=== PATIENT | male | born 1955 | race Caucasian/White ===

== ENCOUNTER 2022-01-05 01:30 | Emergency (ER) | payer MEDICARE, OTHER ==
[~2022-01-05] VITALS: Ht 180.3 cm; Wt 85.4 kg
[~2022-01-05 01:30] MED LIST: QUET100T PO
[2022-01-05 01:39] VITALS: BP 129/74
[2022-01-05] MEDS ORDERED: IBUPROFEN 600 MG TABLET PO ONE (01:45)
== END 2022-01-05 04:15 | disposition home or self-care (01) ==
LOC: EMS 01:32
DX: G89.29 Other chronic pain (principal); M54.9 Dorsalgia, unspecified; F41.9 Anxiety disorder, unspecified; F20.9 Schizophrenia, unspecified; F17.210 Nicotine dependence, cigarettes, uncomplicated; Z89.431 Acquired absence of right foot; Z99.3 Dependence on wheelchair; Z90.89 Acquired absence of other organs
CPT/HCPCS: 99283

== ENCOUNTER 2022-01-08 11:54 | Inpatient (IN) | payer MEDICARE, MEDICAID ==
[~2022-01-08] VITALS: Ht 175.3 cm; Wt 72.6 kg
[2022-01-08 12:58] LABS: BASOPHILS % (AUTO) 0.8 % (0.0-2.0); EOSINOPHILS % (AUTO) 4.2 % (1.0-6.0); HEMATOCRIT 30.5 % (41-53); HEMOGLOBIN 10.3 g/dL (13.5-17.5); LYMPHOCYTES # (AUTO) 1.2 K/uL (1.0-4.8); LYMPHOCYTES % (AUTO) 25.5 % (22.0-44.0); MEAN CORPUSCULAR HEMOGLOBIN 28.9 pg (26.0-34.0); MEAN CORPUSCULAR HGB CONC 33.8 G/dL (31.0-37.0); MEAN CORPUSCULAR VOLUME 86 fL (80-100); MONOCYTES # (AUTO) 0.4 K/uL (0.1-1.0); MONOCYTES % (AUTO) 9.2 % (2.0-9.0); NEUTROPHILS # (AUTO) 2.8 K/uL (1.8-7.7); NEUTROPHILS % (AUTO) 60.3 % (40.0-70.0); PLATELET COUNT (AUTO) 118 K/uL (150-450); RED BLOOD CELL COUNT(AUTO) 3.56 MIL/uL (4.50-5.90); RED CELL DISTRIBUTION WIDTH 16.4 % (11.5-14.5)
[2022-01-08 13:14] LABS: ANION GAP 10 mmol/L (8-16); CALCIUM, TOTAL 8.4 mg/dL (8.8-10.5); CARBON DIOXIDE 25 mmol/L (22-29); CHLORIDE 106 mmol/L (98-107); CREATININE 0.71 mg/dL (0.60-1.30); GLOMERULAR FILTR. RATE CALC > 60 mL/min (>60); GLUCOSE,RANDOM 91 mg/dL (70-110); POTASSIUM 3.6 mmol/L (3.5-5.1); SODIUM SERUM 141 mmol/L (136-145); UREA NITROGEN, BLOOD 10 mg/dL (7-18)
[2022-01-08 13:16] LABS: ALANINE AMINOTRANSFERASE 38 U/L (12-78); ALBUMIN 2.9 g/dL (3.4-5.0); ALKALINE PHOSPHATASE 142 U/L (46-116); ASPARTATE AMINOTRANSFERASE 34 U/L (15-37); BILIRUBIN,TOTAL 0.4 mg/dL (0.1-1.0); TOTAL PROTEIN, SERUM 7.3 g/dL (6.4-8.2)
[2022-01-08] MEDS ORDERED: DiphenhydrAMINE HCL 50 MG/ML VIAL IM ONE (15:15)
[2022-01-08] MEDS ORDERED: HALOPERIDOL LACTATE 5 MG/ML VIAL IM ONE (15:15)
[2022-01-08] MEDS ORDERED: LORazepam 2 MG/ML VIAL IM ONE (15:15)
[2022-01-08 15:44] LABS: COVID AG,FIA SOURCE NASAL SWAB
[2022-01-08 15:54] LABS: AMPHET/METH SCREEN,URINE NEGATIVE (NEGATIVE); BARBITURATE SCREEN, URINE NEGATIVE (NEGATIVE); BENZODIAZEPINES SCREEN,URINE NEGATIVE (NEGATIVE); CANNABINOID SCREEN,URINE NEGATIVE (NEGATIVE); COCAINE SCREEN,URINE NEGATIVE (NEGATIVE); METHADONE SCREEN, URINE NEGATIVE (NEGATIVE); OPIATE SCREEN,URINE NEGATIVE (NEGATIVE)
[2022-01-08 16:00] LABS: PHENCYCLIDINE SCREEN,URINE NEGATIVE (NEGATIVE)
[2022-01-08 16:11] LABS: APPEARANCE,URINE CLEAR (CLEAR); GLUCOSE, URINE (UA) NEGATIVE (NEGATIVE); OCCULT BLOOD,URINE NEGATIVE (NEGATIVE); PROTEIN,URINE NEGATIVE (NEGATIVE)
[2022-01-08 16:12] LABS: BILIRUBIN,URINE NEGATIVE (NEGATIVE); KETONES,URINE NEGATIVE (NEGATIVE)
[2022-01-08 16:13] LABS: LEUKOCYTE ESTERASE ,URINE NEGATIVE Leu/uL (NEGATIVE); NITRATE,URINE NEGATIVE (NEGATIVE)
[2022-01-08 21:17] VITALS: BP 120/62
[2022-01-08] MEDS ORDERED: PNEUMOCOCCAL VACCINE POLYVALENT 0.5 ML VIAL [PPSV23] IM. ONE (21:30)
[2022-01-08] MEDS ORDERED: INFLUENZA VIRUS VACCINE QVS 2021-22 (6MO+)/PF 60 MCG/0.5 ML SYRINGE IM. ONE (21:30)
[2022-01-09 04:18] VITALS: BP 114/68
[2022-01-09] MEDS ORDERED: PETROLATUM,WHITE 28 GM JELLY TP PRN (06:30)
[2022-01-09] MEDS ORDERED: GuaiFENesin/D-METHORPHAN [SUGAR-FREE] 200-20MG/10 ML SYRUP UDCUP PO PRN (06:30)
[2022-01-09] MEDS ORDERED: MAG HYDROX/AL HYDROX/SIMETH ES 30 ML SUSPENSION UDCUP PO PRN (06:30)
[2022-01-09] MEDS ORDERED: CloNIDine HCL 0.1 MG TABLET PO PRN (06:30)
[2022-01-09] MEDS ORDERED: MAGNESIUM HYDROXIDE SUSPENSION 30 ML UDCUP PO PRN (06:30)
[2022-01-09] MEDS ORDERED: NICOTINE 14 MG/24 HOUR PATCH TD PRN (06:30)
[2022-01-09] MEDS ORDERED: DOCUSATE SODIUM 100 MG CAPSULE PO PRN (06:30)
[2022-01-09] MEDS ORDERED: ONDANSETRON HCL 4 MG TABLET PO PRN (06:30)
[2022-01-09] MEDS ORDERED: ALBUTEROL SULFATE HFA 90 MCG/PUFF 8 GM INHALER IH PRN (06:30)
[2022-01-09] MEDS ORDERED: LOPERAMIDE HCL 2 MG CAPSULE PO PRN (06:30)
[2022-01-09] MEDS: IBUPROFEN 400 MG TABLET PO PRN ×2 (08:52→19:00)
[2022-01-09] MEDS: LORazepam 2 MG TABLET PO PRN ×2 (08:54→19:00)
[2022-01-09] MEDS: HALOPERIDOL 5 MG TABLET PO PRN (08:56)
[2022-01-09 09:58] VITALS: BP 116/70
[2022-01-09 16:03] VITALS: BP_SYST 110; BP_SYST 111; BP_DIAS 60; BP_DIAS 68
[2022-01-09] MEDS: QUEtiapine FUMARATE 100 MG TABLET PO SCH (20:20)
[2022-01-10] MEDS: ACETAMINOPHEN 325 MG TABLET PO PRN ×2 (00:32→21:06)
[2022-01-10 03:25] VITALS: BP 112/72
[2022-01-10] MEDS: IBUPROFEN 400 MG TABLET PO PRN ×2 (04:20→15:49)
[2022-01-10] MEDS: LORazepam 2 MG TABLET PO PRN ×2 (06:34→10:34)
[2022-01-10] MEDS: HALOPERIDOL 5 MG TABLET PO PRN (08:09)
[2022-01-10 08:36] VITALS: BP 114/70
[2022-01-10 16:17] VITALS: BP 114/70
[2022-01-10] MEDS: QUEtiapine FUMARATE 100 MG TABLET PO SCH (20:54)
[2022-01-11] MEDS: IBUPROFEN 400 MG TABLET PO PRN ×3 (02:03→18:56)
[2022-01-11] MEDS: LORazepam 2 MG TABLET PO PRN ×3 (02:03→12:50)
[2022-01-11 05:19] VITALS: BP 110/68
[2022-01-11 08:36] VITALS: BP 125/61
[2022-01-11] MEDS: HALOPERIDOL 5 MG TABLET PO PRN (08:46)
[2022-01-11 16:07] VITALS: BP 124/68
[2022-01-11] MEDS: QUEtiapine FUMARATE 100 MG TABLET PO SCH (21:00)
[2022-01-11] MEDS: ACETAMINOPHEN 325 MG TABLET PO PRN (21:36)
[2022-01-12 04:21] VITALS: BP 118/66
[2022-01-12] MEDS: LORazepam 2 MG TABLET PO PRN ×2 (08:02→20:12)
[2022-01-12] MEDS: HALOPERIDOL 5 MG TABLET PO PRN (08:02)
[2022-01-12 08:03] VITALS: BP 124/74
[2022-01-12] MEDS ORDERED: LORazepam 2 MG/ML VIAL IM ONE (08:45)
[2022-01-12] MEDS ORDERED: DiphenhydrAMINE HCL 50 MG/ML VIAL IM ONE (08:45)
[2022-01-12] MEDS ORDERED: HALOPERIDOL LACTATE 5 MG/ML VIAL IM ONE (08:45)
[2022-01-12] MEDS: QUEtiapine FUMARATE 100 MG TABLET PO SCH (20:12)
[2022-01-13] MEDS: ZOLPIDEM TARTRATE 10 MG TABLET PO PRN ×2 (00:02→23:12)
[2022-01-13] MEDS: LORazepam 2 MG TABLET PO PRN ×4 (00:03→12:29)
[2022-01-13 05:17] VITALS: BP 120/62
[2022-01-13 07:57] VITALS: BP 121/85
[2022-01-13] MEDS: HALOPERIDOL 5 MG TABLET PO PRN (08:29)
[2022-01-13] MEDS: IBUPROFEN 400 MG TABLET PO PRN (10:46)
[2022-01-13 16:12] VITALS: BP 114/69
[2022-01-13] MEDS: QUEtiapine FUMARATE 100 MG TABLET PO SCH (20:43)
[2022-01-14] MEDS: LORazepam 2 MG TABLET PO PRN ×2 (00:59→06:21)
[2022-01-14] MEDS: HALOPERIDOL 5 MG TABLET PO PRN ×3 (00:59→16:19)
[2022-01-14 01:00] VITALS: BP 132/62
[2022-01-14 09:17] VITALS: BP 110/64
[2022-01-14] MEDS: LORazepam 1 MG TABLET PO PRN ×2 (12:17→18:23)
[2022-01-14 16:07] VITALS: BP 110/64
[2022-01-14] MEDS: IBUPROFEN 400 MG TABLET PO PRN (16:18)
[2022-01-14] MEDS: QUEtiapine FUMARATE 100 MG TABLET PO SCH (20:05)
[2022-01-15] MEDS: LORazepam 1 MG TABLET PO PRN ×3 (01:33→15:35)
[2022-01-15 02:09] VITALS: BP 112/64
[2022-01-15] MEDS: IBUPROFEN 400 MG TABLET PO PRN (04:44)
[2022-01-15 08:08] VITALS: BP 124/63
[2022-01-15] MEDS: HALOPERIDOL 5 MG TABLET PO PRN (08:09)
[2022-01-15] MEDS: FERROUS SULFATE 325 MG EC TABLET PO SCH ×2 (12:40→16:10)
[2022-01-15 16:15] VITALS: BP 115/72
[2022-01-15] MEDS: QUEtiapine FUMARATE 100 MG TABLET PO SCH (20:09)
[2022-01-16] MEDS: LORazepam 1 MG TABLET PO PRN ×3 (00:56→16:26)
[2022-01-16] MEDS: HALOPERIDOL 5 MG TABLET PO PRN ×3 (00:56→16:26)
[2022-01-16] MEDS: IBUPROFEN 400 MG TABLET PO PRN ×2 (05:29→15:00)
[2022-01-16] MEDS: FERROUS SULFATE 325 MG EC TABLET PO SCH ×3 (06:23→16:26)
[2022-01-16 10:42] VITALS: BP 118/72
[2022-01-16 16:03] VITALS: BP 128/79
[2022-01-16] MEDS: ACETAMINOPHEN 325 MG TABLET PO PRN (18:35)
[2022-01-16] MEDS: QUEtiapine FUMARATE 100 MG TABLET PO SCH (20:05)
[2022-01-17 05:28] VITALS: BP 116/70
[2022-01-17] MEDS: FERROUS SULFATE 325 MG EC TABLET PO SCH ×3 (06:25→16:35)
[2022-01-17 08:07] VITALS: BP 140/68
[2022-01-17] MEDS: HALOPERIDOL 5 MG TABLET PO PRN (08:10)
[2022-01-17] MEDS: LORazepam 1 MG TABLET PO PRN ×2 (08:10→16:35)
[2022-01-17 16:28] VITALS: BP 108/64
[2022-01-17] MEDS: QUEtiapine FUMARATE 100 MG TABLET PO SCH (21:00)
[2022-01-18 05:15] VITALS: BP 116/64
[2022-01-18] MEDS: FERROUS SULFATE 325 MG EC TABLET PO SCH ×2 (06:43→11:23)
[2022-01-18] MEDS: LORazepam 1 MG TABLET PO PRN ×2 (06:43→11:42)
[2022-01-18 08:55] VITALS: BP 118/70
[2022-01-18] MEDS: HALOPERIDOL 5 MG TABLET PO PRN (11:22)
== END 2022-01-18 11:15 | disposition left against medical advice (07) | DRG 750 ==
LOC: EMS 12:03 → B3A 18:22
PROVIDERS: ADMIT Psychiatry & Neurology Child & Adolescent Psychiatry; ATTEND Psychiatry & Neurology Child & Adolescent Psychiatry
DX: F20.0 Paranoid schizophrenia (principal); E83.51 Hypocalcemia; R45.850 Homicidal ideations; F17.210 Nicotine dependence, cigarettes, uncomplicated; Z20.822 Contact with and (suspected) exposure to COVID-19; F41.9 Anxiety disorder, unspecified; Z90.49 Acquired absence of other specified parts of digestive tract; Z71.6 Tobacco abuse counseling; D64.9 Anemia, unspecified; Z59.00 Homelessness unspecified
CPT/HCPCS: 80053; 81003; 85025; G0480; J1200; J1630; J2060

== ENCOUNTER 2022-01-22 22:10 | Inpatient (IN) | payer MEDICAID, MEDICARE, OTHER ==
[~2022-01-22] VITALS: Ht 175.3 cm; Wt 74.5 kg
[2022-01-22] MEDS ORDERED: HALOPERIDOL LACTATE 5 MG/ML VIAL ONE (22:33)
[2022-01-22] MEDS ORDERED: DiphenhydrAMINE HCL 50 MG/ML VIAL ONE (22:33)
[2022-01-22] MEDS ORDERED: LORazepam 2 MG/ML VIAL ONE (22:33)
[2022-01-22] MEDS ORDERED: LORazepam 2 MG/ML VIAL IM ONE (22:45)
[2022-01-22] MEDS ORDERED: DiphenhydrAMINE HCL 50 MG/ML VIAL IM ONE (22:45)
[2022-01-22] MEDS ORDERED: HALOPERIDOL LACTATE 5 MG/ML VIAL IM ONE (22:45)
[2022-01-22] MEDS ORDERED: ZOLPIDEM TARTRATE 10 MG TABLET PO PRN (23:30)
[2022-01-23] LABS: COVID AG,FIA SOURCE NASOPHARYNGEAL
[2022-01-23 00:17] LABS: BASOPHILS % (AUTO) 0.5 % (0.0-2.0); EOSINOPHILS % (AUTO) 1.1 % (1.0-6.0); HEMATOCRIT 31.1 % (41-53); HEMOGLOBIN 10.4 g/dL (13.5-17.5); LYMPHOCYTES # (AUTO) 1.1 K/uL (1.0-4.8); LYMPHOCYTES % (AUTO) 16.3 % (22.0-44.0); MEAN CORPUSCULAR HEMOGLOBIN 28.6 pg (26.0-34.0); MEAN CORPUSCULAR HGB CONC 33.3 G/dL (31.0-37.0); MEAN CORPUSCULAR VOLUME 86 fL (80-100); MONOCYTES # (AUTO) 0.5 K/uL (0.1-1.0); MONOCYTES % (AUTO) 7.8 % (2.0-9.0); NEUTROPHILS # (AUTO) 4.8 K/uL (1.8-7.7); NEUTROPHILS % (AUTO) 74.3 % (40.0-70.0); PLATELET COUNT (AUTO) 104 K/uL (150-450); RED BLOOD CELL COUNT(AUTO) 3.62 MIL/uL (4.50-5.90); RED CELL DISTRIBUTION WIDTH 16.2 % (11.5-14.5)
[2022-01-23 00:31] LABS: ALANINE AMINOTRANSFERASE 68 U/L (12-78); ALBUMIN 3.3 g/dL (3.4-5.0); ALKALINE PHOSPHATASE 156 U/L (46-116); ANION GAP 7 mmol/L (8-16); ASPARTATE AMINOTRANSFERASE 66 U/L (15-37); BILIRUBIN,TOTAL 0.5 mg/dL (0.1-1.0); CALCIUM, TOTAL 8.8 mg/dL (8.8-10.5); CARBON DIOXIDE 28 mmol/L (22-29); CHLORIDE 107 mmol/L (98-107); CREATININE 0.95 mg/dL (0.60-1.30); GLOMERULAR FILTR. RATE CALC > 60 mL/min (>60); GLUCOSE,RANDOM 106 mg/dL (70-110); SODIUM SERUM 142 mmol/L (136-145); UREA NITROGEN, BLOOD 23 mg/dL (7-18)
[2022-01-23 00:32] LABS: POTASSIUM 2.9 mmol/L (3.5-5.1)
[2022-01-23] MEDS ORDERED: POTASSIUM CHLORIDE 20 MEQ ER TABLET PO ONE (00:45)
[2022-01-23] MEDS ORDERED: MAGNESIUM CHLORIDE 64 MG ER TABLET PO ONE (00:45)
[2022-01-23] MEDS: POTASSIUM CHL 10 MEQ/WATER 50 ML IV SCH ×3 (02:07→04:03)
[2022-01-23 03:56] LABS: GLUCOSE,POINT OF CARE 90 MG/DL (70-110)
[2022-01-23] MEDS ORDERED: LOPERAMIDE HCL 2 MG CAPSULE PO PRN (06:45)
[2022-01-23] MEDS ORDERED: MAG HYDROX/AL HYDROX/SIMETH ES 30 ML SUSPENSION UDCUP PO PRN (06:45)
[2022-01-23] MEDS ORDERED: ALBUTEROL SULFATE HFA 90 MCG/PUFF 8 GM INHALER IH PRN (06:45)
[2022-01-23] MEDS ORDERED: MAGNESIUM HYDROXIDE SUSPENSION 30 ML UDCUP PO PRN (06:45)
[2022-01-23] MEDS ORDERED: ONDANSETRON HCL 4 MG TABLET PO PRN (06:45)
[2022-01-23] MEDS ORDERED: PETROLATUM,WHITE 28 GM JELLY TP PRN (06:45)
[2022-01-23] MEDS ORDERED: NICOTINE 14 MG/24 HOUR PATCH TD PRN (06:45)
[2022-01-23] MEDS ORDERED: CloNIDine HCL 0.1 MG TABLET PO PRN (06:45)
[2022-01-23] MEDS ORDERED: DOCUSATE SODIUM 100 MG CAPSULE PO PRN (06:45)
[2022-01-23 07:09] LABS: AMPHET/METH SCREEN,URINE POSITIVE (NEGATIVE); APPEARANCE,URINE CLEAR (CLEAR); BARBITURATE SCREEN, URINE NEGATIVE (NEGATIVE); BENZODIAZEPINES SCREEN,URINE NEGATIVE (NEGATIVE); BILIRUBIN,URINE NEGATIVE (NEGATIVE); CANNABINOID SCREEN,URINE POSITIVE (NEGATIVE); COCAINE SCREEN,URINE NEGATIVE (NEGATIVE); GLUCOSE, URINE (UA) NEGATIVE (NEGATIVE); KETONES,URINE NEGATIVE (NEGATIVE); LEUKOCYTE ESTERASE ,URINE NEGATIVE (NEGATIVE); METHADONE SCREEN, URINE NEGATIVE (NEGATIVE); NITRATE,URINE NEGATIVE (NEGATIVE); OCCULT BLOOD,URINE NEGATIVE (NEGATIVE); OPIATE SCREEN,URINE NEGATIVE (NEGATIVE); PROTEIN,URINE 30-70 mg/dL (NEGATIVE); SPECIFIC GRAVITIY, URINE 1.027 (1.003-1.030)
[2022-01-23 07:12] LABS: PHENCYCLIDINE SCREEN,URINE NEGATIVE (NEGATIVE)
[2022-01-23 09:30] VITALS: BP 129/85
[2022-01-23 16:11] VITALS: BP 132/82
[2022-01-23] MEDS ORDERED: INFLUENZA VIRUS VACCINE QVS 2021-22 (6MO+)/PF 60 MCG/0.5 ML SYRINGE IM. ONE (16:15)
[2022-01-23] MEDS: LORazepam 2 MG TABLET PO PRN ×2 (16:43→21:18)
[2022-01-23] MEDS: QUEtiapine FUMARATE 100 MG TABLET PO SCH (21:18)
[2022-01-24 00:33] VITALS: BP 138/80
[2022-01-24 08:00] VITALS: BP 120/72
[2022-01-24] MEDS: LORazepam 2 MG TABLET PO PRN ×3 (08:00→20:49)
[2022-01-24] MEDS: HALOPERIDOL 5 MG TABLET PO PRN (08:00)
[2022-01-24] MEDS ORDERED: LORazepam 2 MG/ML VIAL ONE (08:20)
[2022-01-24] MEDS ORDERED: HALOPERIDOL LACTATE 5 MG/ML VIAL ONE (08:21)
[2022-01-24] MEDS ORDERED: DiphenhydrAMINE HCL 50 MG/ML VIAL ONE (08:21)
[2022-01-24] MEDS ORDERED: LORazepam 2 MG/ML VIAL IM ONE (08:30)
[2022-01-24] MEDS ORDERED: DiphenhydrAMINE HCL 50 MG/ML VIAL IM ONE (08:30)
[2022-01-24] MEDS ORDERED: HALOPERIDOL LACTATE 5 MG/ML VIAL IM ONE (08:30)
[2022-01-24 16:40] VITALS: BP 145/70
[2022-01-24] MEDS: QUEtiapine FUMARATE 100 MG TABLET PO SCH (20:49)
[2022-01-25 03:50] VITALS: BP 132/73
[2022-01-25] MEDS: LORazepam 2 MG TABLET PO PRN ×3 (08:06→20:31)
[2022-01-25] MEDS: HALOPERIDOL 5 MG TABLET PO PRN (08:07)
[2022-01-25 08:24] VITALS: BP 149/78
[2022-01-25 16:17] VITALS: BP 125/68
[2022-01-25] MEDS: QUEtiapine FUMARATE 100 MG TABLET PO SCH (20:31)
[2022-01-26] MEDS: LORazepam 2 MG TABLET PO PRN ×4 (01:22→16:52)
[2022-01-26 01:23] VITALS: BP 113/66
[2022-01-26] MEDS: HALOPERIDOL 5 MG TABLET PO PRN (08:09)
[2022-01-26] MEDS: ACETAMINOPHEN 325 MG TABLET PO PRN (08:12)
[2022-01-26 09:55] VITALS: BP 124/57
[2022-01-26 16:01] VITALS: BP 136/69
[2022-01-26] MEDS: GuaiFENesin/D-METHORPHAN [SUGAR-FREE] 200-20MG/10 ML SYRUP UDCUP PO PRN (16:52)
[2022-01-26] MEDS: QUEtiapine FUMARATE 100 MG TABLET PO SCH (20:15)
[2022-01-27 00:27] VITALS: BP 128/70
[2022-01-27] MEDS: LORazepam 2 MG TABLET PO PRN ×3 (06:29→21:34)
[2022-01-27 08:06] VITALS: BP 136/67
[2022-01-27] MEDS: GuaiFENesin/D-METHORPHAN [SUGAR-FREE] 200-20MG/10 ML SYRUP UDCUP PO PRN ×2 (08:09→15:28)
[2022-01-27] MEDS: MULTIVITAMINS WITH IRON TABLET PO SCH (11:12)
[2022-01-27] MEDS: ACETAMINOPHEN 325 MG TABLET PO PRN (14:04)
[2022-01-27 16:03] VITALS: BP 111/66
[2022-01-27] MEDS: IBUPROFEN 400 MG TABLET PO PRN (18:41)
[2022-01-27] MEDS: QUEtiapine FUMARATE 100 MG TABLET PO SCH (21:34)
[2022-01-28 00:15] VITALS: BP 108/64
[2022-01-28 00:18] VITALS: BP 108/64
[2022-01-28] MEDS: LORazepam 2 MG TABLET PO PRN ×3 (05:54→23:56)
[2022-01-28] MEDS: MULTIVITAMINS WITH IRON TABLET PO SCH (08:08)
[2022-01-28] MEDS: ACETAMINOPHEN 325 MG TABLET PO PRN (08:09)
[2022-01-28 16:03] VITALS: BP 112/72
[2022-01-28] MEDS: IBUPROFEN 400 MG TABLET PO PRN ×2 (17:37→23:56)
[2022-01-28] MEDS: QUEtiapine FUMARATE 100 MG TABLET PO SCH (20:43)
[2022-01-29 01:02] VITALS: BP 118/69
[2022-01-29] MEDS: LORazepam 2 MG TABLET PO PRN ×4 (04:07→22:04)
[2022-01-29] MEDS: ACETAMINOPHEN 325 MG TABLET PO PRN (07:53)
[2022-01-29] MEDS: MULTIVITAMINS WITH IRON TABLET PO SCH (08:07)
[2022-01-29] MEDS: TraMADol HCL 50 MG TABLET PO PRN ×3 (09:51→22:05)
[2022-01-29 16:04] VITALS: BP 103/62
[2022-01-29] MEDS: QUEtiapine FUMARATE 100 MG TABLET PO SCH (21:00)
[2022-01-29 22:03] VITALS: BP 110/68
[2022-01-30 00:03] VITALS: BP 112/62
[2022-01-30] MEDS: TraMADol HCL 50 MG TABLET PO PRN ×3 (08:03→20:30)
[2022-01-30] MEDS: LORazepam 2 MG TABLET PO PRN ×2 (08:03→14:22)
[2022-01-30] MEDS: MULTIVITAMINS WITH IRON TABLET PO SCH (08:03)
[2022-01-30] MEDS: HALOPERIDOL 5 MG TABLET PO PRN ×2 (08:04→14:22)
[2022-01-30 16:05] VITALS: BP 101/68
[2022-01-30] MEDS: QUEtiapine FUMARATE 100 MG TABLET PO SCH (20:07)
[2022-01-31] MEDS: LORazepam 2 MG TABLET PO PRN ×4 (02:04→18:01)
[2022-01-31 04:38] VITALS: BP 108/59
[2022-01-31 08:00] VITALS: BP 109/57
[2022-01-31] MEDS: TraMADol HCL 50 MG TABLET PO PRN ×2 (08:00→16:18)
[2022-01-31] MEDS: MULTIVITAMINS WITH IRON TABLET PO SCH (08:00)
[2022-01-31 08:32] VITALS: BP 109/57
[2022-01-31 16:09] VITALS: BP 133/76
[2022-01-31] MEDS: QUEtiapine FUMARATE 100 MG TABLET PO SCH (20:21)
[2022-02-01] MEDS: LORazepam 2 MG TABLET PO PRN ×4 (00:17→20:03)
[2022-02-01] MEDS: TraMADol HCL 50 MG TABLET PO PRN ×3 (00:17→17:18)
[2022-02-01 00:20] VITALS: BP 129/73
[2022-02-01 08:00] VITALS: BP 100/60
[2022-02-01] MEDS: MULTIVITAMINS WITH IRON TABLET PO SCH (08:02)
[2022-02-01 16:08] VITALS: BP 109/62
[2022-02-01 17:18] VITALS: BP 116/60
[2022-02-01] MEDS: QUEtiapine FUMARATE 100 MG TABLET PO SCH (20:46)
[2022-02-02] MEDS: TraMADol HCL 50 MG TABLET PO PRN ×4 (02:07→21:18)
[2022-02-02] MEDS: LORazepam 2 MG TABLET PO PRN ×4 (02:08→21:18)
[2022-02-02] MEDS: IBUPROFEN 400 MG TABLET PO PRN (07:40)
[2022-02-02] MEDS: MULTIVITAMINS WITH IRON TABLET PO SCH (08:12)
[2022-02-02 16:02] VITALS: BP 103/63
[2022-02-02] MEDS: QUEtiapine FUMARATE 100 MG TABLET PO SCH (21:00)
[2022-02-03] MEDS: LORazepam 2 MG TABLET PO PRN ×3 (03:27→18:46)
[2022-02-03] MEDS: TraMADol HCL 50 MG TABLET PO PRN ×3 (03:28→18:46)
[2022-02-03] MEDS: MULTIVITAMINS WITH IRON TABLET PO SCH (08:05)
[2022-02-03 08:27] VITALS: BP 110/70
[2022-02-03 16:01] VITALS: BP 113/68
[2022-02-03] MEDS: QUEtiapine FUMARATE 100 MG TABLET PO SCH (21:00)
[2022-02-04] MEDS: LORazepam 2 MG TABLET PO PRN ×4 (04:31→20:16)
[2022-02-04] MEDS: TraMADol HCL 50 MG TABLET PO PRN (04:32)
[2022-02-04 08:00] VITALS: BP 118/70
[2022-02-04] MEDS: MULTIVITAMINS WITH IRON TABLET PO SCH (08:52)
[2022-02-04 16:04] VITALS: BP 106/62
[2022-02-04] MEDS: QUEtiapine FUMARATE 100 MG TABLET PO SCH (21:00)
[2022-02-05 06:58] VITALS: BP 110/68
[2022-02-05] MEDS: MULTIVITAMINS WITH IRON TABLET PO SCH (08:19)
[2022-02-05] MEDS: LORazepam 2 MG TABLET PO PRN ×2 (08:20→20:30)
[2022-02-05] MEDS: TraMADol HCL 50 MG TABLET PO PRN (11:17)
[2022-02-05 16:04] VITALS: BP 110/66
[2022-02-05] MEDS: QUEtiapine FUMARATE 100 MG TABLET PO SCH (21:00)
[2022-02-06 02:48] VITALS: BP 118/77
[2022-02-06] MEDS: TraMADol HCL 50 MG TABLET PO PRN ×3 (02:55→15:48)
[2022-02-06] MEDS: LORazepam 2 MG TABLET PO PRN ×4 (02:55→20:13)
[2022-02-06] MEDS: MULTIVITAMINS WITH IRON TABLET PO SCH (08:18)
[2022-02-06 08:36] VITALS: BP 114/63
[2022-02-06 16:20] VITALS: BP 112/62
[2022-02-06] MEDS: QUEtiapine FUMARATE 100 MG TABLET PO SCH (20:13)
[2022-02-07 05:40] VITALS: BP 112/64
[2022-02-07 08:03] VITALS: BP 118/64
[2022-02-07] MEDS: MULTIVITAMINS WITH IRON TABLET PO SCH (08:25)
[2022-02-07] MEDS: TraMADol HCL 50 MG TABLET PO PRN ×3 (08:25→23:57)
[2022-02-07] MEDS: LORazepam 2 MG TABLET PO PRN ×3 (08:25→21:06)
[2022-02-07 16:13] VITALS: BP 113/72
[2022-02-07 16:14] VITALS: BP 113/72
[2022-02-07] MEDS: QUEtiapine FUMARATE 100 MG TABLET PO SCH (21:00)
[2022-02-08 04:07] VITALS: BP 123/78
[2022-02-08 05:15] VITALS: BP 112/64
[2022-02-08] MEDS: LORazepam 2 MG TABLET PO PRN ×3 (05:18→20:58)
[2022-02-08] MEDS: TraMADol HCL 50 MG TABLET PO PRN ×2 (06:29→13:29)
[2022-02-08] MEDS: MULTIVITAMINS WITH IRON TABLET PO SCH (08:04)
[2022-02-08 08:10] VITALS: BP 134/65
[2022-02-08 16:15] VITALS: BP 113/65
[2022-02-08] MEDS: QUEtiapine FUMARATE 100 MG TABLET PO SCH (21:00)
[2022-02-09 03:21] VITALS: BP 111/77
[2022-02-09] MEDS: LORazepam 2 MG TABLET PO PRN ×3 (03:24→16:53)
[2022-02-09] MEDS: TraMADol HCL 50 MG TABLET PO PRN ×3 (03:24→16:54)
[2022-02-09] MEDS: MULTIVITAMINS WITH IRON TABLET PO SCH (08:03)
[2022-02-09 08:04] VITALS: BP 110/71
[2022-02-09 16:02] VITALS: BP 112/70
[2022-02-09] MEDS: QUEtiapine FUMARATE 100 MG TABLET PO SCH (21:13)
[2022-02-10 01:02] VITALS: BP 118/73
[2022-02-10] MEDS: MULTIVITAMINS WITH IRON TABLET PO SCH (08:03)
[2022-02-10] MEDS: TraMADol HCL 50 MG TABLET PO PRN ×2 (08:04→15:54)
[2022-02-10] MEDS: LORazepam 2 MG TABLET PO PRN ×3 (08:04→20:06)
[2022-02-10 08:36] VITALS: BP 124/70
[2022-02-10 16:00] VITALS: BP 126/61
[2022-02-10] MEDS: QUEtiapine FUMARATE 100 MG TABLET PO SCH (20:06)
[2022-02-11] MEDS: MULTIVITAMINS WITH IRON TABLET PO SCH (08:00)
[2022-02-11] MEDS: TraMADol HCL 50 MG TABLET PO PRN ×3 (08:45→21:19)
[2022-02-11] MEDS: LORazepam 2 MG TABLET PO PRN ×3 (08:45→20:35)
[2022-02-11 16:10] VITALS: BP 113/72
[2022-02-11] MEDS: QUEtiapine FUMARATE 100 MG TABLET PO SCH (20:35)
[2022-02-12 04:37] VITALS: BP 133/84
[2022-02-12] MEDS: MULTIVITAMINS WITH IRON TABLET PO SCH (08:03)
[2022-02-12 08:05] VITALS: BP 135/81
[2022-02-12] MEDS: TraMADol HCL 50 MG TABLET PO PRN ×2 (09:03→16:13)
[2022-02-12] MEDS: LORazepam 2 MG TABLET PO PRN ×2 (09:03→14:03)
[2022-02-12] MEDS ORDERED: QUET100T34 PO (15:51)
[2022-02-12 16:08] VITALS: BP 118/72
[2022-02-12] MEDS ORDERED: MULT-700 PO (16:20)
== END 2022-02-12 17:00 | disposition home or self-care (01) | DRG 750 ==
LOC: EMS 23:07 → UNDOADMIN 23:42 → B3A 23:42
PROVIDERS: ADMIT Psychiatry & Neurology Child & Adolescent Psychiatry; ATTEND Psychiatry & Neurology Child & Adolescent Psychiatry
DX: F20.0 Paranoid schizophrenia (principal); D69.6 Thrombocytopenia, unspecified; D64.9 Anemia, unspecified; F12.10 Cannabis abuse, uncomplicated; F15.10 Other stimulant abuse, uncomplicated; Z20.822 Contact with and (suspected) exposure to COVID-19; I10 Essential (primary) hypertension; F17.210 Nicotine dependence, cigarettes, uncomplicated; E87.6 Hypokalemia; F99 Mental disorder, not otherwise specified; Z71.6 Tobacco abuse counseling; Z72.89 Other problems related to lifestyle; Z71.41 Alcohol abuse counseling and surveillance of alcoholic
CPT/HCPCS: 80053; 82962; 84132; 85025; 99291; G0480; J1200; J1630; J2060; J3480

== ENCOUNTER 2022-02-17 15:59 | Inpatient (IN) | payer MEDICARE, MEDICAID ==
[~2022-02-17] VITALS: Ht 188 cm; Wt 83.5 kg
[~2022-02-17 15:59] MED LIST changes: +MULT-700 PO; -QUET100T PO; +QUET100T34 PO
[2022-02-17] MEDS ORDERED: HALOPERIDOL LACTATE 5 MG/ML VIAL IM ONE ×2 (18:15→19:15)
[2022-02-17] MEDS ORDERED: DiphenhydrAMINE HCL 50 MG/ML VIAL IM ONE (18:15)
[2022-02-17] MEDS ORDERED: LORazepam 2 MG/ML VIAL IM ONE ×2 (18:15→19:15)
[2022-02-17] MEDS ORDERED: ZOLPIDEM TARTRATE 10 MG TABLET PO PRN (19:00)
[2022-02-17 19:35] LABS: COVID AG,FIA SOURCE NASOPHARYNGEAL
[2022-02-17 20:26] LABS: BASOPHILS % (AUTO) 0.5 % (0.0-2.0); EOSINOPHILS % (AUTO) 12.2 % (1.0-6.0); HEMATOCRIT 31.6 % (41-53); HEMOGLOBIN 10.7 g/dL (13.5-17.5); LYMPHOCYTES # (AUTO) 1.6 K/uL (1.0-4.8); LYMPHOCYTES % (AUTO) 23.6 % (22.0-44.0); MEAN CORPUSCULAR HEMOGLOBIN 29.8 pg (26.0-34.0); MEAN CORPUSCULAR VOLUME 88 fL (80-100); MONOCYTES # (AUTO) 0.9 K/uL (0.1-1.0); MONOCYTES % (AUTO) 13.3 % (2.0-9.0); NEUTROPHILS # (AUTO) 3.4 K/uL (1.8-7.7); NEUTROPHILS % (AUTO) 50.4 % (40.0-70.0); PLATELET COUNT (AUTO) 84 K/uL (150-450); RED CELL DISTRIBUTION WIDTH 15.9 % (11.5-14.5)
[2022-02-17 20:35] LABS: ANION GAP 7 mmol/L (8-16); CALCIUM, TOTAL 8.3 mg/dL (8.8-10.5); CARBON DIOXIDE 26 mmol/L (22-29); CHLORIDE 107 mmol/L (98-107); GLOMERULAR FILTR. RATE CALC > 60 mL/min (>60); GLUCOSE,RANDOM 81 mg/dL (70-110); POTASSIUM 3.5 mmol/L (3.5-5.1); SODIUM SERUM 140 mmol/L (136-145); UREA NITROGEN, BLOOD 26 mg/dL (7-18)
[2022-02-17 20:41] LABS: ALANINE AMINOTRANSFERASE 65 U/L (12-78); ALBUMIN 3.1 g/dL (3.4-5.0); ALKALINE PHOSPHATASE 133 U/L (46-116); ASPARTATE AMINOTRANSFERASE 52 U/L (15-37); BILIRUBIN,TOTAL 0.6 mg/dL (0.1-1.0); TOTAL PROTEIN, SERUM 7.4 g/dL (6.4-8.2)
[2022-02-17] MEDS ORDERED: DOXYCYCLINE HYCLATE 100 MG TABLET PO ONE (21:45)
[2022-02-17] MEDS ORDERED: CefTRIAXone SODIUM 1 GM/VIAL IM ONE (21:45)
[2022-02-17] MEDS ORDERED: LIDOCAINE/PF 1% 2 ML VIAL IM ONE (21:45)
[2022-02-18] MEDS ORDERED: CEPHALEXIN MONOHYDRATE 500 MG CAPSULE PO ONE (09:00)
[2022-02-18] MEDS ORDERED: ALBUTEROL SULFATE HFA 90 MCG/PUFF 8 GM INHALER IH PRN (10:00)
[2022-02-18] MEDS ORDERED: MAGNESIUM HYDROXIDE SUSPENSION 30 ML UDCUP PO PRN (10:00)
[2022-02-18] MEDS ORDERED: NICOTINE 14 MG/24 HOUR PATCH TD PRN (10:00)
[2022-02-18] MEDS ORDERED: GuaiFENesin/D-METHORPHAN [SUGAR-FREE] 200-20MG/10 ML SYRUP UDCUP PO PRN (10:00)
[2022-02-18] MEDS ORDERED: CloNIDine HCL 0.1 MG TABLET PO PRN (10:00)
[2022-02-18] MEDS ORDERED: ONDANSETRON HCL 4 MG TABLET PO PRN (10:00)
[2022-02-18] MEDS ORDERED: DOCUSATE SODIUM 100 MG CAPSULE PO PRN (10:00)
[2022-02-18] MEDS ORDERED: PETROLATUM,WHITE 28 GM JELLY TP PRN (10:00)
[2022-02-18] MEDS ORDERED: LOPERAMIDE HCL 2 MG CAPSULE PO PRN (10:00)
[2022-02-18] MEDS: HALOPERIDOL 5 MG TABLET PO PRN ×2 (12:55→17:01)
[2022-02-18] MEDS: LORazepam 2 MG TABLET PO PRN ×2 (12:55→17:01)
[2022-02-18 16:03] VITALS: BP 108/62
[2022-02-18] MEDS ORDERED: PERMETHRIN 5% 60 GM CREAM TP ONE ×2 (16:03→20:00)
[2022-02-18] MEDS: SULFAMETHOX/TRIMETH DS 800-160 MG/TABLET PO SCH (17:01)
[2022-02-18] MEDS: CEPHALEXIN MONOHYDRATE 500 MG CAPSULE PO SCH (17:01)
[2022-02-18 18:53] VITALS: BP 108/62
[2022-02-19] MEDS: CEPHALEXIN MONOHYDRATE 500 MG CAPSULE PO SCH ×3 (00:26→16:59)
[2022-02-19] MEDS: IBUPROFEN 400 MG TABLET PO PRN (03:47)
[2022-02-19 03:48] VITALS: BP 114/60
[2022-02-19] MEDS: LORazepam 2 MG TABLET PO PRN ×4 (06:54→21:09)
[2022-02-19] MEDS: SULFAMETHOX/TRIMETH DS 800-160 MG/TABLET PO SCH ×2 (08:05→16:58)
[2022-02-19 08:17] VITALS: BP 106/54
[2022-02-19] MEDS: HALOPERIDOL 5 MG TABLET PO PRN ×2 (08:38→16:59)
[2022-02-19] MEDS: QUEtiapine FUMARATE 25 MG TABLET PO SCH (12:56)
[2022-02-19 16:25] VITALS: BP 118/68
[2022-02-19] MEDS: QUEtiapine FUMARATE 100 MG TABLET PO SCH (21:09)
[2022-02-20] MEDS: CEPHALEXIN MONOHYDRATE 500 MG CAPSULE PO SCH ×3 (00:49→16:43)
[2022-02-20 05:09] VITALS: BP 125/71
[2022-02-20] MEDS: QUEtiapine FUMARATE 25 MG TABLET PO SCH (08:18)
[2022-02-20] MEDS: SULFAMETHOX/TRIMETH DS 800-160 MG/TABLET PO SCH ×2 (08:18→16:43)
[2022-02-20] MEDS: LORazepam 2 MG TABLET PO PRN ×3 (08:18→16:50)
[2022-02-20 08:24] VITALS: BP 120/68
[2022-02-20] MEDS: HALOPERIDOL 5 MG TABLET PO PRN ×2 (09:38→16:43)
[2022-02-20 16:05] VITALS: BP 112/66
[2022-02-20] MEDS: QUEtiapine FUMARATE 100 MG TABLET PO SCH (20:02)
[2022-02-20] MEDS: TraMADol HCL 50 MG TABLET PO PRN (20:02)
[2022-02-21] MEDS: CEPHALEXIN MONOHYDRATE 500 MG CAPSULE PO SCH ×3 (00:59→16:31)
[2022-02-21 04:08] VITALS: BP 114/70
[2022-02-21 08:34] VITALS: BP 117/78
[2022-02-21] MEDS: QUEtiapine FUMARATE 25 MG TABLET PO SCH (09:00)
[2022-02-21] MEDS: HALOPERIDOL 5 MG TABLET PO PRN ×3 (09:17→18:22)
[2022-02-21] MEDS: SULFAMETHOX/TRIMETH DS 800-160 MG/TABLET PO SCH ×2 (09:17→16:31)
[2022-02-21] MEDS: LORazepam 2 MG TABLET PO PRN ×3 (09:17→18:22)
[2022-02-21 16:04] VITALS: BP 127/82
[2022-02-21] MEDS: TraMADol HCL 50 MG TABLET PO PRN (16:31)
[2022-02-21] MEDS: QUEtiapine FUMARATE 100 MG TABLET PO SCH (20:20)
[2022-02-22] MEDS: CEPHALEXIN MONOHYDRATE 500 MG CAPSULE PO SCH ×4 (00:55→23:45)
[2022-02-22] MEDS: TraMADol HCL 50 MG TABLET PO PRN ×2 (01:14→16:46)
[2022-02-22 01:16] VITALS: BP 110/62
[2022-02-22] MEDS: HALOPERIDOL 5 MG TABLET PO PRN (08:37)
[2022-02-22] MEDS: QUEtiapine FUMARATE 25 MG TABLET PO SCH (08:38)
[2022-02-22] MEDS: LORazepam 2 MG TABLET PO PRN ×2 (08:38→16:45)
[2022-02-22] MEDS: SULFAMETHOX/TRIMETH DS 800-160 MG/TABLET PO SCH ×2 (08:38→16:45)
[2022-02-22 10:35] VITALS: BP 115/74
[2022-02-22 16:06] VITALS: BP 109/68
[2022-02-22] MEDS: QUEtiapine FUMARATE 100 MG TABLET PO SCH (20:44)
[2022-02-22] MEDS: IBUPROFEN 400 MG TABLET PO PRN (22:39)
[2022-02-22] MEDS: ACETAMINOPHEN 325 MG TABLET PO PRN (23:49)
[2022-02-23 04:15] VITALS: BP 99/59
[2022-02-23] MEDS: QUEtiapine FUMARATE 25 MG TABLET PO SCH (08:38)
[2022-02-23] MEDS: LORazepam 2 MG TABLET PO PRN ×2 (08:38→16:23)
[2022-02-23] MEDS: SULFAMETHOX/TRIMETH DS 800-160 MG/TABLET PO SCH ×2 (08:38→16:22)
[2022-02-23] MEDS: CEPHALEXIN MONOHYDRATE 500 MG CAPSULE PO SCH ×2 (08:38→16:23)
[2022-02-23] MEDS: TraMADol HCL 50 MG TABLET PO PRN ×2 (08:39→16:24)
[2022-02-23 09:07] VITALS: BP 128/65
[2022-02-23 16:07] VITALS: BP 118/71
[2022-02-23] MEDS: QUEtiapine FUMARATE 100 MG TABLET PO SCH (20:24)
[2022-02-24] MEDS: CEPHALEXIN MONOHYDRATE 500 MG CAPSULE PO SCH ×3 (01:06→16:32)
[2022-02-24 01:24] VITALS: BP 101/69
[2022-02-24] MEDS: LORazepam 2 MG TABLET PO PRN ×3 (01:32→16:32)
[2022-02-24] MEDS: TraMADol HCL 50 MG TABLET PO PRN ×2 (01:33→16:32)
[2022-02-24] MEDS: SULFAMETHOX/TRIMETH DS 800-160 MG/TABLET PO SCH ×2 (08:17→16:32)
[2022-02-24] MEDS: QUEtiapine FUMARATE 25 MG TABLET PO SCH (08:17)
[2022-02-24] MEDS: HALOPERIDOL 5 MG TABLET PO PRN (08:48)
[2022-02-24 16:45] VITALS: BP 105/68
[2022-02-24] MEDS: QUEtiapine FUMARATE 100 MG TABLET PO SCH (20:45)
[2022-02-25] MEDS: CEPHALEXIN MONOHYDRATE 500 MG CAPSULE PO SCH ×3 (01:10→17:07)
[2022-02-25] MEDS: TraMADol HCL 50 MG TABLET PO PRN ×3 (01:11→19:03)
[2022-02-25] MEDS: LORazepam 2 MG TABLET PO PRN ×4 (01:11→17:07)
[2022-02-25 08:10] VITALS: BP 103/51
[2022-02-25] MEDS: QUEtiapine FUMARATE 25 MG TABLET PO SCH (08:12)
[2022-02-25] MEDS: SULFAMETHOX/TRIMETH DS 800-160 MG/TABLET PO SCH ×2 (08:12→17:06)
[2022-02-25 16:03] VITALS: BP 103/62
[2022-02-25] MEDS: QUEtiapine FUMARATE 100 MG TABLET PO SCH (20:37)
[2022-02-26] MEDS: TraMADol HCL 50 MG TABLET PO PRN ×2 (04:26→17:17)
[2022-02-26 08:06] VITALS: BP 122/74
[2022-02-26] MEDS: QUEtiapine FUMARATE 25 MG TABLET PO SCH (08:08)
[2022-02-26] MEDS: LORazepam 2 MG TABLET PO PRN ×2 (08:09→17:14)
[2022-02-26] MEDS: HALOPERIDOL 5 MG TABLET PO PRN ×2 (08:09→17:14)
[2022-02-26 16:25] VITALS: BP 128/76
[2022-02-26 17:15] VITALS: BP 125/72
[2022-02-26 17:46] LABS: GLUCOMETER DEV NAME(LOC) POC.BV
[2022-02-26] MEDS: QUEtiapine FUMARATE 100 MG TABLET PO SCH (20:51)
[2022-02-27 05:39] VITALS: BP 124/72
[2022-02-27] MEDS: QUEtiapine FUMARATE 25 MG TABLET PO SCH (08:30)
[2022-02-27] MEDS: LORazepam 2 MG TABLET PO PRN ×3 (09:32→21:17)
[2022-02-27] MEDS: TraMADol HCL 50 MG TABLET PO PRN ×2 (09:32→16:28)
[2022-02-27 09:33] VITALS: BP 117/71
[2022-02-27 16:08] VITALS: BP 113/72
[2022-02-27] MEDS: QUEtiapine FUMARATE 100 MG TABLET PO SCH (21:10)
[2022-02-27] MEDS: CALAMINE/ZINC OXIDE 177 ML LOTION TP PRN (21:40)
[2022-02-28 02:18] VITALS: BP 103/62
[2022-02-28 08:05] VITALS: BP 113/71
[2022-02-28] MEDS: QUEtiapine FUMARATE 25 MG TABLET PO SCH (09:00)
[2022-02-28] MEDS: TraMADol HCL 50 MG TABLET PO PRN ×2 (10:03→16:16)
[2022-02-28] MEDS: LORazepam 2 MG TABLET PO PRN ×3 (10:03→21:52)
[2022-02-28 16:05] VITALS: BP 106/62
[2022-02-28] MEDS: QUEtiapine FUMARATE 100 MG TABLET PO SCH (20:48)
[2022-03-01] MEDS: TraMADol HCL 50 MG TABLET PO PRN ×4 (01:15→23:35)
[2022-03-01] MEDS: LORazepam 2 MG TABLET PO PRN ×4 (01:15→21:07)
[2022-03-01 01:16] VITALS: BP 100/60
[2022-03-01] MEDS: QUEtiapine FUMARATE 25 MG TABLET PO SCH (08:05)
[2022-03-01 08:15] VITALS: BP 100/60
[2022-03-01 16:18] VITALS: BP 132/62
[2022-03-01] MEDS: QUEtiapine FUMARATE 100 MG TABLET PO SCH (20:48)
[2022-03-02] MEDS: IBUPROFEN 400 MG TABLET PO PRN ×2 (03:55→13:12)
[2022-03-02] MEDS: LORazepam 2 MG TABLET PO PRN ×4 (03:55→17:45)
[2022-03-02 03:56] VITALS: BP 100/68
[2022-03-02] MEDS: TraMADol HCL 50 MG TABLET PO PRN ×2 (08:26→17:45)
[2022-03-02] MEDS: QUEtiapine FUMARATE 25 MG TABLET PO SCH ×2 (08:26→08:40)
[2022-03-02 16:08] VITALS: BP 102/68
[2022-03-02] MEDS: QUEtiapine FUMARATE 100 MG TABLET PO SCH (21:00)
[2022-03-03 01:19] VITALS: BP 100/69
[2022-03-03 06:17] VITALS: BP 106/69
[2022-03-03] MEDS: TraMADol HCL 50 MG TABLET PO PRN ×2 (06:28→13:11)
[2022-03-03] MEDS: LORazepam 2 MG TABLET PO PRN ×2 (06:28→13:11)
[2022-03-03 08:24] VITALS: BP 110/64
[2022-03-03 13:10] VITALS: BP 118/70
[2022-03-03 16:09] VITALS: BP 115/66
[2022-03-03] MEDS: QUEtiapine FUMARATE 100 MG TABLET PO SCH (20:30)
[2022-03-04 00:25] VITALS: BP 112/75
[2022-03-04] MEDS: LORazepam 2 MG TABLET PO PRN ×3 (00:30→15:56)
[2022-03-04] MEDS: TraMADol HCL 50 MG TABLET PO PRN ×3 (00:30→15:56)
[2022-03-04 08:04] VITALS: BP 109/68
[2022-03-04 15:56] VITALS: BP 113/72
[2022-03-04] MEDS: QUEtiapine FUMARATE 100 MG TABLET PO SCH (21:00)
[2022-03-05] MEDS: LORazepam 2 MG TABLET PO PRN ×3 (01:09→17:39)
[2022-03-05] MEDS: TraMADol HCL 50 MG TABLET PO PRN ×3 (01:09→17:39)
[2022-03-05 01:10] VITALS: BP 123/68
[2022-03-05 08:09] VITALS: BP 122/70
[2022-03-05 16:05] VITALS: BP 106/62
[2022-03-05 17:38] VITALS: BP 110/69
[2022-03-05] MEDS: QUEtiapine FUMARATE 100 MG TABLET PO SCH (21:00)
[2022-03-06 04:02] VITALS: BP 104/64
[2022-03-06] MEDS: LORazepam 2 MG TABLET PO PRN ×3 (04:50→18:02)
[2022-03-06] MEDS: TraMADol HCL 50 MG TABLET PO PRN ×3 (04:50→18:03)
[2022-03-06 08:11] VITALS: BP 106/62
[2022-03-06 16:09] VITALS: BP 109/62
[2022-03-06] MEDS: QUEtiapine FUMARATE 100 MG TABLET PO SCH (20:42)
[2022-03-07 05:09] VITALS: BP 105/59
[2022-03-07] MEDS: TraMADol HCL 50 MG TABLET PO PRN ×3 (07:48→19:55)
[2022-03-07] MEDS: LORazepam 2 MG TABLET PO PRN ×3 (07:48→19:04)
[2022-03-07 08:20] VITALS: BP 129/71
[2022-03-07 08:36] LABS: GLUCOMETER DEV NAME(LOC) BV3N.; GLUCOSE,POINT OF CARE 236 MG/DL (70-110)
[2022-03-07 16:05] VITALS: BP 101/62
[2022-03-07] MEDS: QUEtiapine FUMARATE 100 MG TABLET PO SCH (20:04)
[2022-03-08 05:25] VITALS: BP 118/74
[2022-03-08] MEDS: LORazepam 2 MG TABLET PO PRN ×3 (06:44→19:16)
[2022-03-08] MEDS: TraMADol HCL 50 MG TABLET PO PRN ×3 (06:44→19:16)
[2022-03-08 08:09] VITALS: BP 100/60
[2022-03-08 16:02] VITALS: BP 114/60
[2022-03-08] MEDS: MetFORMIN HCL 500 MG TABLET PO SCH (16:58)
[2022-03-08] MEDS: QUEtiapine FUMARATE 100 MG TABLET PO SCH (20:26)
[2022-03-09] MEDS: LORazepam 2 MG TABLET PO PRN ×3 (06:51→20:14)
[2022-03-09] MEDS: MetFORMIN HCL 500 MG TABLET PO SCH ×2 (06:51→17:06)
[2022-03-09] MEDS: TraMADol HCL 50 MG TABLET PO PRN ×3 (06:51→20:14)
[2022-03-09 08:05] VITALS: BP 116/70
[2022-03-09 16:02] VITALS: BP 106/67
[2022-03-09] MEDS: QUEtiapine FUMARATE 100 MG TABLET PO SCH (20:14)
[2022-03-10 03:23] VITALS: BP 90/67
[2022-03-10] MEDS: MetFORMIN HCL 500 MG TABLET PO SCH ×2 (06:44→17:42)
[2022-03-10 08:00] VITALS: BP 132/72
[2022-03-10] MEDS: LORazepam 2 MG TABLET PO PRN ×3 (08:30→20:30)
[2022-03-10] MEDS: TraMADol HCL 50 MG TABLET PO PRN ×2 (08:30→14:31)
[2022-03-10] MEDS: MAG HYDROX/AL HYDROX/SIMETH ES 30 ML SUSPENSION UDCUP PO PRN (13:27)
[2022-03-10 16:09] VITALS: BP 104/65
[2022-03-10] MEDS: QUEtiapine FUMARATE 100 MG TABLET PO SCH (20:30)
[2022-03-11 01:52] VITALS: BP 113/62
[2022-03-11] MEDS: MetFORMIN HCL 500 MG TABLET PO SCH ×2 (07:02→17:00)
[2022-03-11] MEDS: LORazepam 2 MG TABLET PO PRN ×2 (10:11→17:23)
[2022-03-11] MEDS: TraMADol HCL 50 MG TABLET PO PRN ×2 (10:11→17:24)
[2022-03-11 16:00] VITALS: BP 140/90
[2022-03-11] MEDS: QUEtiapine FUMARATE 200 MG TABLET PO SCH (20:50)
[2022-03-12 03:31] VITALS: BP 105/69
[2022-03-12] MEDS: LORazepam 2 MG TABLET PO PRN ×3 (03:34→19:03)
[2022-03-12] MEDS: TraMADol HCL 50 MG TABLET PO PRN ×3 (03:35→19:03)
[2022-03-12] MEDS: MetFORMIN HCL 500 MG TABLET PO SCH ×2 (06:46→17:00)
[2022-03-12 08:04] VITALS: BP 100/56
[2022-03-12 16:04] VITALS: BP 100/62
[2022-03-12] MEDS: QUEtiapine FUMARATE 200 MG TABLET PO SCH (21:00)
[2022-03-13] MEDS: MetFORMIN HCL 500 MG TABLET PO SCH ×2 (06:47→16:15)
[2022-03-13] MEDS: TraMADol HCL 50 MG TABLET PO PRN ×2 (06:55→16:16)
[2022-03-13 08:04] VITALS: BP 116/60
[2022-03-13] MEDS: LORazepam 2 MG TABLET PO PRN ×2 (09:01→16:15)
[2022-03-13 16:03] VITALS: BP 104/63
[2022-03-13] MEDS: MAG HYDROX/AL HYDROX/SIMETH ES 30 ML SUSPENSION UDCUP PO PRN (17:39)
[2022-03-13] MEDS: QUEtiapine FUMARATE 200 MG TABLET PO SCH (20:39)
[2022-03-14 05:56] VITALS: BP 104/60
[2022-03-14] MEDS: MetFORMIN HCL 500 MG TABLET PO SCH ×2 (06:17→16:32)
[2022-03-14] MEDS: IBUPROFEN 400 MG TABLET PO PRN (07:23)
[2022-03-14] MEDS: LORazepam 2 MG TABLET PO PRN ×2 (07:23→14:41)
[2022-03-14] MEDS: TraMADol HCL 50 MG TABLET PO PRN ×2 (08:10→14:41)
[2022-03-14 08:24] VITALS: BP 112/62
[2022-03-14 16:05] VITALS: BP 110/64
[2022-03-14] MEDS: BENZTROPINE MESYLATE 1 MG TABLET PO SCH (16:32)
[2022-03-14] MEDS: QUEtiapine FUMARATE 200 MG TABLET PO SCH (21:17)
[2022-03-15 00:01] VITALS: BP 95/60
[2022-03-15] MEDS: MetFORMIN HCL 500 MG TABLET PO SCH ×2 (06:32→16:59)
[2022-03-15] MEDS: TraMADol HCL 50 MG TABLET PO PRN ×3 (08:07→21:06)
[2022-03-15] MEDS: LORazepam 2 MG TABLET PO PRN ×3 (08:07→20:23)
[2022-03-15] MEDS: BENZTROPINE MESYLATE 1 MG TABLET PO SCH ×3 (08:07→16:59)
[2022-03-15 16:04] VITALS: BP 116/62
[2022-03-15] MEDS: QUEtiapine FUMARATE 200 MG TABLET PO SCH (20:22)
[2022-03-16] MEDS: TraMADol HCL 50 MG TABLET PO PRN ×3 (04:38→16:46)
[2022-03-16] MEDS: LORazepam 2 MG TABLET PO PRN ×3 (04:38→17:08)
[2022-03-16 04:39] VITALS: BP 122/82
[2022-03-16] MEDS: MetFORMIN HCL 500 MG TABLET PO SCH ×2 (06:40→16:11)
[2022-03-16] MEDS: BENZTROPINE MESYLATE 1 MG TABLET PO SCH ×2 (08:27→16:11)
[2022-03-16 16:04] VITALS: BP 140/62
[2022-03-16] MEDS: QUEtiapine FUMARATE 200 MG TABLET PO SCH (20:48)
[2022-03-17 03:46] VITALS: BP 132/65
[2022-03-17] MEDS: LORazepam 2 MG TABLET PO PRN ×3 (06:38→16:11)
[2022-03-17] MEDS: TraMADol HCL 50 MG TABLET PO PRN ×3 (06:39→23:00)
[2022-03-17] MEDS: MetFORMIN HCL 500 MG TABLET PO SCH ×2 (07:00→17:00)
[2022-03-17 08:07] VITALS: BP 114/63
[2022-03-17] MEDS: BENZTROPINE MESYLATE 1 MG TABLET PO SCH ×2 (08:13→17:00)
[2022-03-17 13:44] VITALS: BP 108/70
[2022-03-17 16:08] VITALS: BP 108/66
[2022-03-17] MEDS: QUEtiapine FUMARATE 200 MG TABLET PO SCH (20:48)
[2022-03-17] MEDS: IBUPROFEN 400 MG TABLET PO PRN (22:27)
[2022-03-18 01:57] VITALS: BP 105/64
[2022-03-18] MEDS: MetFORMIN HCL 500 MG TABLET PO SCH ×2 (06:46→17:00)
[2022-03-18] MEDS: TraMADol HCL 50 MG TABLET PO PRN ×3 (06:49→20:21)
[2022-03-18] MEDS: BENZTROPINE MESYLATE 1 MG TABLET PO SCH ×2 (09:38→17:00)
[2022-03-18] MEDS: LORazepam 2 MG TABLET PO PRN ×2 (13:19→20:20)
[2022-03-18 16:01] VITALS: BP 108/66
[2022-03-18] MEDS: QUEtiapine FUMARATE 200 MG TABLET PO SCH (20:20)
[2022-03-19 05:09] VITALS: BP 96/51
[2022-03-19] MEDS: MetFORMIN HCL 500 MG TABLET PO SCH ×2 (06:24→17:00)
[2022-03-19] MEDS: BENZTROPINE MESYLATE 1 MG TABLET PO SCH ×2 (08:03→17:00)
[2022-03-19] MEDS: TraMADol HCL 50 MG TABLET PO PRN ×2 (08:04→14:54)
[2022-03-19] MEDS: LORazepam 2 MG TABLET PO PRN ×2 (08:04→14:54)
[2022-03-19 16:13] VITALS: BP 106/64
[2022-03-19] MEDS: QUEtiapine FUMARATE 200 MG TABLET PO SCH (21:00)
[2022-03-20] MEDS: LORazepam 2 MG TABLET PO PRN ×4 (00:14→20:49)
[2022-03-20] MEDS: TraMADol HCL 50 MG TABLET PO PRN ×4 (00:14→20:50)
[2022-03-20 01:11] VITALS: BP 93/52
[2022-03-20] MEDS: MetFORMIN HCL 500 MG TABLET PO SCH ×3 (06:20→17:00)
[2022-03-20] MEDS: BENZTROPINE MESYLATE 1 MG TABLET PO SCH ×2 (08:11→17:00)
[2022-03-20 16:08] VITALS: BP 105/64
[2022-03-20] MEDS: QUEtiapine FUMARATE 200 MG TABLET PO SCH (20:51)
[2022-03-21] MEDS: TraMADol HCL 50 MG TABLET PO PRN ×3 (04:30→20:18)
[2022-03-21] MEDS: LORazepam 2 MG TABLET PO PRN ×3 (04:31→20:17)
[2022-03-21 04:37] VITALS: BP 115/62
[2022-03-21] MEDS: MetFORMIN HCL 500 MG TABLET PO SCH ×2 (06:41→06:46)
[2022-03-21] MEDS: BENZTROPINE MESYLATE 1 MG TABLET PO SCH ×2 (08:08→16:14)
[2022-03-21 16:06] VITALS: BP 105/68
[2022-03-21] MEDS: QUEtiapine FUMARATE 200 MG TABLET PO SCH (20:17)
[2022-03-22 01:21] VITALS: BP 104/60
[2022-03-22] MEDS: LORazepam 2 MG TABLET PO PRN ×3 (03:37→16:06)
[2022-03-22] MEDS: TraMADol HCL 50 MG TABLET PO PRN ×3 (03:38→16:06)
[2022-03-22] MEDS: MetFORMIN HCL 500 MG TABLET PO SCH ×2 (06:20→16:07)
[2022-03-22] MEDS: BENZTROPINE MESYLATE 1 MG TABLET PO SCH ×2 (08:06→16:06)
[2022-03-22 08:22] VITALS: BP 102/60
[2022-03-22 16:02] VITALS: BP 104/62
[2022-03-22] MEDS: QUEtiapine FUMARATE 200 MG TABLET PO SCH (20:25)
[2022-03-23 04:26] VITALS: BP 104/68
[2022-03-23] MEDS: MetFORMIN HCL 500 MG TABLET PO SCH ×2 (06:29→16:04)
[2022-03-23 08:04] VITALS: BP 110/65
[2022-03-23] MEDS: LORazepam 2 MG TABLET PO PRN ×3 (08:10→22:27)
[2022-03-23] MEDS: BENZTROPINE MESYLATE 1 MG TABLET PO SCH ×2 (08:10→16:04)
[2022-03-23] MEDS: TraMADol HCL 50 MG TABLET PO PRN ×3 (08:14→22:27)
[2022-03-23 16:04] VITALS: BP 106/65
[2022-03-23] MEDS: QUEtiapine FUMARATE 200 MG TABLET PO SCH ×2 (21:00→22:27)
[2022-03-24 04:45] VITALS: BP 114/72
[2022-03-24] MEDS: MetFORMIN HCL 500 MG TABLET PO SCH ×2 (06:28→16:10)
[2022-03-24] MEDS: LORazepam 2 MG TABLET PO PRN ×3 (08:14→20:55)
[2022-03-24] MEDS: TraMADol HCL 50 MG TABLET PO PRN ×3 (08:15→22:15)
[2022-03-24] MEDS: BENZTROPINE MESYLATE 1 MG TABLET PO SCH ×2 (08:16→16:10)
[2022-03-24 15:53] VITALS: BP 107/61
[2022-03-24 17:47] VITALS: BP 107/61
[2022-03-24] MEDS: QUEtiapine FUMARATE 200 MG TABLET PO SCH (20:54)
[2022-03-25] MEDS: MetFORMIN HCL 500 MG TABLET PO SCH ×2 (06:25→16:03)
[2022-03-25] MEDS: TraMADol HCL 50 MG TABLET PO PRN ×3 (07:59→22:06)
[2022-03-25] MEDS: LORazepam 2 MG TABLET PO PRN ×3 (07:59→20:35)
[2022-03-25] MEDS: BENZTROPINE MESYLATE 1 MG TABLET PO SCH ×2 (08:00→16:03)
[2022-03-25 16:05] VITALS: BP 120/75
[2022-03-25] MEDS: QUEtiapine FUMARATE 200 MG TABLET PO SCH (20:35)
[2022-03-26] MEDS: TraMADol HCL 50 MG TABLET PO PRN ×3 (05:30→20:04)
[2022-03-26] MEDS: LORazepam 2 MG TABLET PO PRN ×3 (05:30→20:04)
[2022-03-26 05:31] VITALS: BP 119/67
[2022-03-26] MEDS: MetFORMIN HCL 500 MG TABLET PO SCH ×2 (06:08→16:41)
[2022-03-26 08:14] VITALS: BP 112/65
[2022-03-26] MEDS: BENZTROPINE MESYLATE 1 MG TABLET PO SCH ×2 (08:29→16:39)
[2022-03-26 16:09] VITALS: BP 104/65
[2022-03-26 20:04] VITALS: BP 112/65
[2022-03-26] MEDS: QUEtiapine FUMARATE 200 MG TABLET PO SCH (20:04)
[2022-03-27] MEDS: LORazepam 2 MG TABLET PO PRN ×3 (05:16→18:15)
[2022-03-27 06:13] VITALS: BP 128/57
[2022-03-27] MEDS: MetFORMIN HCL 500 MG TABLET PO SCH ×2 (06:44→17:53)
[2022-03-27] MEDS: TraMADol HCL 50 MG TABLET PO PRN ×3 (06:45→19:31)
[2022-03-27 08:17] VITALS: BP 107/52
[2022-03-27] MEDS: BENZTROPINE MESYLATE 1 MG TABLET PO SCH ×2 (08:43→17:53)
[2022-03-27 16:11] VITALS: BP 109/62
[2022-03-27] MEDS: QUEtiapine FUMARATE 200 MG TABLET PO SCH (20:30)
[2022-03-28 00:21] VITALS: BP 123/67
[2022-03-28] MEDS: LORazepam 2 MG TABLET PO PRN ×3 (04:12→16:26)
[2022-03-28 04:13] VITALS: BP 118/70
[2022-03-28] MEDS: TraMADol HCL 50 MG TABLET PO PRN ×2 (04:13→16:26)
[2022-03-28] MEDS: MetFORMIN HCL 500 MG TABLET PO SCH ×2 (06:48→16:26)
[2022-03-28 08:18] VITALS: BP 115/74
[2022-03-28] MEDS: BENZTROPINE MESYLATE 1 MG TABLET PO SCH ×2 (09:05→16:26)
[2022-03-28 16:06] VITALS: BP 118/70
[2022-03-28] MEDS: CALAMINE/ZINC OXIDE 177 ML LOTION TP PRN (16:44)
[2022-03-28] MEDS: QUEtiapine FUMARATE 200 MG TABLET PO SCH (20:32)
[2022-03-29] MEDS: LORazepam 2 MG TABLET PO PRN ×3 (03:14→17:15)
[2022-03-29] MEDS: CALAMINE/ZINC OXIDE 177 ML LOTION TP PRN (03:14)
[2022-03-29] MEDS: TraMADol HCL 50 MG TABLET PO PRN ×3 (03:16→17:15)
[2022-03-29 04:49] VITALS: BP 106/61
[2022-03-29] MEDS: MetFORMIN HCL 500 MG TABLET PO SCH ×2 (06:19→17:15)
[2022-03-29] MEDS: BENZTROPINE MESYLATE 1 MG TABLET PO SCH ×2 (08:03→17:15)
[2022-03-29 08:13] VITALS: BP 116/70
[2022-03-29 16:04] VITALS: BP 108/62
[2022-03-29] MEDS: QUEtiapine FUMARATE 200 MG TABLET PO SCH (20:46)
[2022-03-30] MEDS: CALAMINE/ZINC OXIDE 177 ML LOTION TP PRN (03:07)
[2022-03-30] MEDS: TraMADol HCL 50 MG TABLET PO PRN ×3 (03:52→17:32)
[2022-03-30] MEDS: LORazepam 2 MG TABLET PO PRN ×3 (03:52→20:58)
[2022-03-30] MEDS: MetFORMIN HCL 500 MG TABLET PO SCH ×2 (06:34→16:26)
[2022-03-30] MEDS: BENZTROPINE MESYLATE 1 MG TABLET PO SCH ×2 (08:38→16:27)
[2022-03-30 09:35] VITALS: BP 105/66
[2022-03-30 16:05] VITALS: BP 103/60
[2022-03-30] MEDS: QUEtiapine FUMARATE 200 MG TABLET PO SCH (20:58)
[2022-03-31 03:55] VITALS: BP 108/62
[2022-03-31] MEDS: MetFORMIN HCL 500 MG TABLET PO SCH ×2 (06:36→16:34)
[2022-03-31] MEDS: LORazepam 2 MG TABLET PO PRN ×3 (06:42→20:37)
[2022-03-31] MEDS: TraMADol HCL 50 MG TABLET PO PRN ×3 (06:43→20:37)
[2022-03-31 08:32] VITALS: BP 108/64
[2022-03-31] MEDS: BENZTROPINE MESYLATE 1 MG TABLET PO SCH ×2 (09:00→16:33)
[2022-03-31 16:06] VITALS: BP 113/70
[2022-03-31] MEDS: QUEtiapine FUMARATE 200 MG TABLET PO SCH (20:25)
[2022-04-01 05:11] VITALS: BP 97/51
[2022-04-01] MEDS: MetFORMIN HCL 500 MG TABLET PO SCH ×2 (07:00→16:33)
[2022-04-01] MEDS: LORazepam 2 MG TABLET PO PRN ×2 (08:14→14:49)
[2022-04-01] MEDS: TraMADol HCL 50 MG TABLET PO PRN ×2 (08:14→14:49)
[2022-04-01] MEDS: BENZTROPINE MESYLATE 1 MG TABLET PO SCH ×2 (08:14→16:42)
[2022-04-01 08:23] VITALS: BP 100/60
[2022-04-01 16:11] VITALS: BP 114/64
[2022-04-01] MEDS: QUEtiapine FUMARATE 200 MG TABLET PO SCH (21:00)
[2022-04-01 23:58] VITALS: BP 100/65
[2022-04-02] MEDS: TraMADol HCL 50 MG TABLET PO PRN ×4 (00:01→21:12)
[2022-04-02] MEDS: MetFORMIN HCL 500 MG TABLET PO SCH ×2 (06:28→17:19)
[2022-04-02 08:11] VITALS: BP 96/55
[2022-04-02] MEDS: LORazepam 2 MG TABLET PO PRN ×4 (08:26→20:02)
[2022-04-02] MEDS: BENZTROPINE MESYLATE 1 MG TABLET PO SCH ×2 (08:26→17:19)
[2022-04-02 16:00] VITALS: BP 108/62
[2022-04-02] MEDS: QUEtiapine FUMARATE 200 MG TABLET PO SCH (20:02)
[2022-04-03 04:53] VITALS: BP 101/54
[2022-04-03] MEDS: MetFORMIN HCL 500 MG TABLET PO SCH ×2 (06:45→18:01)
[2022-04-03] MEDS: LORazepam 2 MG TABLET PO PRN ×3 (07:11→18:01)
[2022-04-03] MEDS: TraMADol HCL 50 MG TABLET PO PRN ×3 (07:12→20:18)
[2022-04-03] MEDS: BENZTROPINE MESYLATE 1 MG TABLET PO SCH ×2 (08:07→18:01)
[2022-04-03 08:12] VITALS: BP 100/60
[2022-04-03 16:08] VITALS: BP 119/71
[2022-04-03] MEDS: QUEtiapine FUMARATE 200 MG TABLET PO SCH (20:18)
[2022-04-04 04:03] VITALS: BP 107/60
[2022-04-04] MEDS: TraMADol HCL 50 MG TABLET PO PRN ×3 (06:30→20:18)
[2022-04-04] MEDS: MetFORMIN HCL 500 MG TABLET PO SCH ×2 (06:30→18:00)
[2022-04-04] MEDS: BENZTROPINE MESYLATE 1 MG TABLET PO SCH ×2 (08:15→18:00)
[2022-04-04] MEDS: LORazepam 2 MG TABLET PO PRN ×2 (14:09→18:14)
[2022-04-04 16:01] VITALS: BP 105/63
[2022-04-04] MEDS: QUEtiapine FUMARATE 200 MG TABLET PO SCH (20:17)
[2022-04-05 05:39] VITALS: BP 109/60
[2022-04-05] MEDS: LORazepam 2 MG TABLET PO PRN ×2 (06:40→12:53)
[2022-04-05] MEDS: TraMADol HCL 50 MG TABLET PO PRN ×2 (06:41→12:53)
[2022-04-05] MEDS: MetFORMIN HCL 500 MG TABLET PO SCH ×2 (06:41→16:17)
[2022-04-05 08:09] VITALS: BP 112/65
[2022-04-05] MEDS: BENZTROPINE MESYLATE 1 MG TABLET PO SCH ×2 (08:24→16:17)
[2022-04-05 16:07] VITALS: BP 113/72
[2022-04-05] MEDS: QUEtiapine FUMARATE 200 MG TABLET PO SCH (21:00)
[2022-04-06 05:01] VITALS: BP 135/79
[2022-04-06] MEDS: LORazepam 2 MG TABLET PO PRN ×3 (06:30→18:04)
[2022-04-06] MEDS: MetFORMIN HCL 500 MG TABLET PO SCH ×2 (06:30→18:04)
[2022-04-06] MEDS: TraMADol HCL 50 MG TABLET PO PRN ×3 (06:31→20:11)
[2022-04-06] MEDS: BENZTROPINE MESYLATE 1 MG TABLET PO SCH ×2 (08:10→18:04)
[2022-04-06 16:10] VITALS: BP 118/70
[2022-04-06] MEDS: QUEtiapine FUMARATE 200 MG TABLET PO SCH (20:10)
[2022-04-07 04:22] VITALS: BP 106/69
[2022-04-07] MEDS: TraMADol HCL 50 MG TABLET PO PRN ×3 (04:25→17:04)
[2022-04-07] MEDS: LORazepam 2 MG TABLET PO PRN ×3 (04:25→17:03)
[2022-04-07] MEDS: MetFORMIN HCL 500 MG TABLET PO SCH ×2 (06:05→17:03)
[2022-04-07] MEDS: BENZTROPINE MESYLATE 1 MG TABLET PO SCH ×2 (08:26→17:03)
[2022-04-07 08:32] VITALS: BP 113/71
[2022-04-07 17:18] VITALS: BP 105/60
[2022-04-07] MEDS: QUEtiapine FUMARATE 200 MG TABLET PO SCH (21:00)
[2022-04-08 04:51] VITALS: BP 138/81
[2022-04-08] MEDS: TraMADol HCL 50 MG TABLET PO PRN ×3 (05:13→23:52)
[2022-04-08] MEDS: LORazepam 2 MG TABLET PO PRN ×4 (05:13→23:52)
[2022-04-08] MEDS: MetFORMIN HCL 500 MG TABLET PO SCH ×3 (06:22→17:01)
[2022-04-08 08:25] VITALS: BP 133/84
[2022-04-08] MEDS: BENZTROPINE MESYLATE 1 MG TABLET PO SCH ×3 (09:00→17:01)
[2022-04-08] MEDS: ACETAMINOPHEN 325 MG TABLET PO PRN (12:16)
[2022-04-08] MEDS: QUEtiapine FUMARATE 200 MG TABLET PO SCH ×3 (19:55→21:00)
[2022-04-09 00:05] VITALS: BP 131/82
[2022-04-09] MEDS: LORazepam 2 MG TABLET PO PRN ×2 (06:33→12:59)
[2022-04-09] MEDS: MetFORMIN HCL 500 MG TABLET PO SCH ×2 (06:33→16:45)
[2022-04-09] MEDS: TraMADol HCL 50 MG TABLET PO PRN ×2 (06:33→13:00)
[2022-04-09 08:04] VITALS: BP 124/80
[2022-04-09] MEDS: BENZTROPINE MESYLATE 1 MG TABLET PO SCH ×2 (08:46→16:45)
[2022-04-09 16:09] VITALS: BP 105/62
[2022-04-09] MEDS: QUEtiapine FUMARATE 200 MG TABLET PO SCH (21:00)
[2022-04-10 04:24] VITALS: BP 102/61
[2022-04-10] MEDS: MetFORMIN HCL 500 MG TABLET PO SCH ×2 (06:54→16:17)
[2022-04-10] MEDS: BENZTROPINE MESYLATE 1 MG TABLET PO SCH ×2 (08:25→16:17)
[2022-04-10] MEDS: LORazepam 2 MG TABLET PO PRN ×3 (09:12→23:36)
[2022-04-10] MEDS: TraMADol HCL 50 MG TABLET PO PRN ×3 (09:12→23:39)
[2022-04-10 16:31] VITALS: BP 102/68
[2022-04-10] MEDS: QUEtiapine FUMARATE 200 MG TABLET PO SCH (20:57)
[2022-04-11 01:22] VITALS: BP 101/57
[2022-04-11] MEDS: MetFORMIN HCL 500 MG TABLET PO SCH ×2 (06:33→17:03)
[2022-04-11 08:12] VITALS: BP 108/68
[2022-04-11] MEDS: LORazepam 2 MG TABLET PO PRN ×2 (08:12→17:03)
[2022-04-11] MEDS: BENZTROPINE MESYLATE 1 MG TABLET PO SCH ×2 (08:12→17:03)
[2022-04-11] MEDS: TraMADol HCL 50 MG TABLET PO PRN ×2 (10:00→17:03)
[2022-04-11 16:06] VITALS: BP 113/64
[2022-04-11] MEDS: QUEtiapine FUMARATE 200 MG TABLET PO SCH (21:00)
[2022-04-12 04:36] VITALS: BP 120/61
[2022-04-12] MEDS: MetFORMIN HCL 500 MG TABLET PO SCH ×2 (06:03→18:15)
[2022-04-12] MEDS: TraMADol HCL 50 MG TABLET PO PRN ×3 (06:04→20:14)
[2022-04-12] MEDS: LORazepam 2 MG TABLET PO PRN ×3 (06:04→18:15)
[2022-04-12 08:17] VITALS: BP 108/68
[2022-04-12] MEDS: BENZTROPINE MESYLATE 1 MG TABLET PO SCH ×2 (08:23→18:15)
[2022-04-12 16:08] VITALS: BP 126/78
[2022-04-12] MEDS: QUEtiapine FUMARATE 200 MG TABLET PO SCH (20:13)
[2022-04-13 01:54] VITALS: BP 98/64
[2022-04-13] MEDS: LORazepam 2 MG TABLET PO PRN ×4 (03:02→20:32)
[2022-04-13] MEDS: TraMADol HCL 50 MG TABLET PO PRN ×3 (03:16→16:30)
[2022-04-13] MEDS: MetFORMIN HCL 500 MG TABLET PO SCH ×2 (06:54→16:39)
[2022-04-13] MEDS: BENZTROPINE MESYLATE 1 MG TABLET PO SCH ×2 (08:06→16:30)
[2022-04-13 08:20] VITALS: BP 112/70
[2022-04-13 16:03] VITALS: BP 107/62
[2022-04-13] MEDS: QUEtiapine FUMARATE 200 MG TABLET PO SCH (20:14)
[2022-04-14] MEDS: TraMADol HCL 50 MG TABLET PO PRN ×3 (04:49→18:24)
[2022-04-14] MEDS: LORazepam 2 MG TABLET PO PRN ×4 (04:49→22:35)
[2022-04-14] MEDS: MetFORMIN HCL 500 MG TABLET PO SCH ×3 (07:00→16:22)
[2022-04-14] MEDS: BENZTROPINE MESYLATE 1 MG TABLET PO SCH ×3 (09:50→16:21)
[2022-04-14] MEDS: QUEtiapine FUMARATE 200 MG TABLET PO SCH (21:00)
[2022-04-15] MEDS: TraMADol HCL 50 MG TABLET PO PRN ×3 (03:31→20:23)
[2022-04-15] MEDS: LORazepam 2 MG TABLET PO PRN ×3 (03:31→20:23)
[2022-04-15 03:32] VITALS: BP 102/68
[2022-04-15] MEDS: MetFORMIN HCL 500 MG TABLET PO SCH ×2 (07:00→17:00)
[2022-04-15 08:10] VITALS: BP 108/64
[2022-04-15] MEDS: BENZTROPINE MESYLATE 1 MG TABLET PO SCH ×2 (08:12→17:00)
[2022-04-15 16:16] VITALS: BP 132/76
[2022-04-15] MEDS: QUEtiapine FUMARATE 200 MG TABLET PO SCH (20:24)
[2022-04-16] MEDS: LORazepam 2 MG TABLET PO PRN ×3 (02:02→16:36)
[2022-04-16] MEDS: TraMADol HCL 50 MG TABLET PO PRN ×3 (02:03→16:36)
[2022-04-16] MEDS: MetFORMIN HCL 500 MG TABLET PO SCH ×2 (07:00→16:34)
[2022-04-16] MEDS: BENZTROPINE MESYLATE 1 MG TABLET PO SCH ×2 (08:06→16:36)
[2022-04-16 16:08] VITALS: BP 118/66
[2022-04-16] MEDS: QUEtiapine FUMARATE 200 MG TABLET PO SCH (20:43)
[2022-04-17] MEDS: TraMADol HCL 50 MG TABLET PO PRN ×3 (04:32→19:34)
[2022-04-17] MEDS: LORazepam 2 MG TABLET PO PRN ×3 (04:32→19:34)
[2022-04-17 04:33] VITALS: BP 121/68
[2022-04-17] MEDS: MetFORMIN HCL 500 MG TABLET PO SCH ×2 (06:54→17:00)
[2022-04-17] MEDS: BENZTROPINE MESYLATE 1 MG TABLET PO SCH ×2 (08:29→17:00)
[2022-04-17] MEDS: OLANZapine 10 MG TABLET PO SCH (20:20)
[2022-04-18] MEDS: LORazepam 2 MG TABLET PO PRN ×2 (02:08→08:29)
[2022-04-18] MEDS: TraMADol HCL 50 MG TABLET PO PRN ×2 (02:09→09:08)
[2022-04-18] MEDS: MetFORMIN HCL 500 MG TABLET PO SCH ×2 (06:45→16:45)
[2022-04-18] MEDS: BENZTROPINE MESYLATE 1 MG TABLET PO SCH ×2 (08:29→16:45)
[2022-04-18 16:18] VITALS: BP 112/72
[2022-04-18] MEDS: OLANZapine 10 MG TABLET PO SCH (20:04)
[2022-04-19] MEDS: MetFORMIN HCL 500 MG TABLET PO SCH ×2 (06:40→16:32)
[2022-04-19] MEDS: BENZTROPINE MESYLATE 1 MG TABLET PO SCH ×2 (08:22→16:32)
[2022-04-19] MEDS: LORazepam 2 MG TABLET PO PRN ×2 (09:03→20:01)
[2022-04-19] MEDS: TraMADol HCL 50 MG TABLET PO PRN (09:04)
[2022-04-19 16:04] VITALS: BP 123/68
[2022-04-19] MEDS: OLANZapine 10 MG TABLET PO SCH (20:01)
[2022-04-20 03:29] VITALS: BP 123/63
[2022-04-20] MEDS: LORazepam 2 MG TABLET PO PRN ×3 (03:31→20:00)
[2022-04-20] MEDS: TraMADol HCL 50 MG TABLET PO PRN ×2 (03:32→09:32)
[2022-04-20] MEDS: MetFORMIN HCL 500 MG TABLET PO SCH ×2 (06:42→15:55)
[2022-04-20] MEDS: BENZTROPINE MESYLATE 1 MG TABLET PO SCH ×2 (08:09→15:55)
[2022-04-20] MEDS: OLANZapine 10 MG TABLET PO SCH (20:00)
[2022-04-21 03:12] VITALS: BP 127/67
[2022-04-21] MEDS ORDERED: IBUPROFEN 400 MG TABLET PO PRN (08:15)
[2022-04-21] MEDS ORDERED: CloNIDine HCL 0.1 MG TABLET PO PRN (08:15)
[2022-04-21] MEDS ORDERED: MAG HYDROX/AL HYDROX/SIMETH ES 30 ML SUSPENSION UDCUP PO PRN (08:15)
[2022-04-21] MEDS ORDERED: PETROLATUM,WHITE 28 GM JELLY TP PRN (08:15)
[2022-04-21] MEDS ORDERED: LOPERAMIDE HCL 2 MG CAPSULE PO PRN (08:15)
[2022-04-21] MEDS ORDERED: MAGNESIUM HYDROXIDE SUSPENSION 30 ML UDCUP PO PRN (08:15)
[2022-04-21] MEDS ORDERED: GuaiFENesin/D-METHORPHAN [SUGAR-FREE] 200-20MG/10 ML SYRUP UDCUP PO PRN (08:15)
[2022-04-21] MEDS ORDERED: DOCUSATE SODIUM 100 MG CAPSULE PO PRN (08:15)
[2022-04-21] MEDS ORDERED: NICOTINE 14 MG/24 HOUR PATCH TD PRN (08:15)
[2022-04-21] MEDS ORDERED: ALBUTEROL SULFATE HFA 90 MCG/PUFF 8 GM INHALER IH PRN (08:15)
[2022-04-21] MEDS ORDERED: ONDANSETRON HCL 4 MG TABLET PO PRN (08:15)
[2022-04-21] MEDS ORDERED: ACETAMINOPHEN 325 MG TABLET PO PRN (08:15)
[2022-04-21] MEDS: LORazepam 2 MG TABLET PO PRN ×2 (09:55→19:13)
[2022-04-21] MEDS: TraMADol HCL 50 MG TABLET PO PRN ×2 (09:55→20:07)
[2022-04-21 16:02] VITALS: BP 113/69
[2022-04-21] MEDS: OLANZapine 10 MG TABLET PO SCH (20:07)
[2022-04-22 04:05] VITALS: BP 104/60
[2022-04-22] MEDS: LORazepam 2 MG TABLET PO PRN (11:19)
[2022-04-22] MEDS: TraMADol HCL 50 MG TABLET PO PRN ×2 (11:19→20:26)
[2022-04-22] MEDS ORDERED: LORazepam 2 MG/ML VIAL ONE (11:42)
[2022-04-22] MEDS ORDERED: HALOPERIDOL LACTATE 5 MG/ML VIAL ONE (11:42)
[2022-04-22] MEDS ORDERED: DiphenhydrAMINE HCL 50 MG/ML VIAL ONE (11:42)
[2022-04-22] MEDS ORDERED: DiphenhydrAMINE HCL 50 MG/ML VIAL IM ONE (11:45)
[2022-04-22] MEDS ORDERED: HALOPERIDOL LACTATE 5 MG/ML VIAL IM ONE (11:45)
[2022-04-22] MEDS ORDERED: LORazepam 2 MG/ML VIAL IM ONE (11:45)
[2022-04-22 13:14] VITALS: BP 109/66
[2022-04-22 16:22] VITALS: BP 118/70
[2022-04-22] MEDS: OLANZapine 10 MG TABLET PO SCH (20:25)
[2022-04-23 04:02] VITALS: BP 123/72
[2022-04-23 08:05] VITALS: BP 118/69
[2022-04-23] MEDS: TraMADol HCL 50 MG TABLET PO PRN ×2 (08:26→14:34)
[2022-04-23] MEDS ORDERED: LORazepam 2 MG/ML VIAL ONE (16:20)
[2022-04-23] MEDS ORDERED: DiphenhydrAMINE HCL 50 MG/ML VIAL ONE (16:21)
[2022-04-23] MEDS ORDERED: HALOPERIDOL LACTATE 5 MG/ML VIAL ONE ×2 (16:21→16:24)
[2022-04-23 16:30] VITALS: BP 112/72
[2022-04-23] MEDS ORDERED: LORazepam 2 MG/ML VIAL IM ONE (16:30)
[2022-04-23] MEDS ORDERED: HALOPERIDOL LACTATE 5 MG/ML VIAL IM ONE (16:30)
[2022-04-23] MEDS ORDERED: DiphenhydrAMINE HCL 50 MG/ML VIAL IM ONE (16:30)
[2022-04-23] MEDS: OLANZapine 10 MG TABLET PO SCH (20:07)
[2022-04-24 00:45] VITALS: BP 110/68
[2022-04-24] MEDS: TraMADol HCL 50 MG TABLET PO PRN ×2 (10:36→16:53)
[2022-04-24] MEDS ORDERED: PERMETHRIN 5% 60 GM CREAM TP ONE (14:30)
[2022-04-24 16:06] VITALS: BP 112/72
[2022-04-24] MEDS ORDERED: PERMETHRIN 1% 60 ML LOTION TP ONE ×3 (18:18→19:15)
[2022-04-24] MEDS ORDERED: ChlorproMAZINE HCL 50 MG/2 ML AMP IM ONE (18:45)
[2022-04-24] MEDS ORDERED: DiphenhydrAMINE HCL 50 MG/ML VIAL IM ONE (18:45)
[2022-04-24] MEDS: OLANZapine 10 MG TABLET PO SCH (20:25)
[2022-04-25 00:48] VITALS: BP 11/63
[2022-04-25] MEDS: TraMADol HCL 50 MG TABLET PO PRN ×3 (00:48→16:20)
[2022-04-25 08:02] VITALS: BP 110/70
[2022-04-25] MEDS ORDERED: TUBERCULIN, PURIFIED PROTEIN DERIVATIVE 5 TU/0.1 ML SYRINGE ID ONE (14:15)
[2022-04-25] MEDS: OLANZapine 10 MG TABLET PO SCH (20:36)
[2022-04-26 00:33] VITALS: BP 135/61
[2022-04-26] MEDS: TraMADol HCL 50 MG TABLET PO PRN ×3 (00:35→16:15)
[2022-04-26] MEDS ORDERED: HydrOXYzine PAMOATE 50 MG CAPSULE PO PRN (08:30)
[2022-04-26 16:08] VITALS: BP 118/64
[2022-04-26] MEDS: OLANZapine 10 MG TABLET PO SCH (20:46)
[2022-04-27] MEDS: TraMADol HCL 50 MG TABLET PO PRN ×3 (05:06→20:49)
[2022-04-27 05:09] VITALS: BP 157/74
[2022-04-27] MEDS ORDERED: LORazepam 2 MG/ML VIAL ONE (10:51)
[2022-04-27] MEDS ORDERED: DiphenhydrAMINE HCL 50 MG/ML VIAL ONE (10:52)
[2022-04-27] MEDS ORDERED: HALOPERIDOL LACTATE 5 MG/ML VIAL ONE (10:52)
[2022-04-27] MEDS ORDERED: HALOPERIDOL LACTATE 5 MG/ML VIAL IM ONE (11:45)
[2022-04-27] MEDS ORDERED: DiphenhydrAMINE HCL 50 MG/ML VIAL IM ONE (11:45)
[2022-04-27] MEDS ORDERED: LORazepam 2 MG/ML VIAL IM ONE (11:45)
[2022-04-27] MEDS: OLANZapine 10 MG TABLET PO SCH (20:40)
[2022-04-27 20:46] VITALS: BP 112/70
[2022-04-28 00:17] VITALS: BP 110/73
[2022-04-28] MEDS: TraMADol HCL 50 MG TABLET PO PRN ×3 (04:50→17:05)
[2022-04-28 16:07] VITALS: BP 115/64
[2022-04-28] MEDS: HYDROCORTISONE 2.5% 30 GM CREAM TP SCH ×2 (16:10→16:28)
[2022-04-28] MEDS: OLANZapine 10 MG TABLET PO SCH ×2 (21:00→22:58)
[2022-04-29] MEDS: TraMADol HCL 50 MG TABLET PO PRN (07:06)
[2022-04-29 08:11] VITALS: BP 144/95
[2022-04-29] MEDS: HYDROCORTISONE 2.5% 30 GM CREAM TP SCH (08:17)
[2022-04-29] MEDS ORDERED: OLAN7.5T22 PO (10:08)
[2022-04-29] MEDS ORDERED: OLAN10 PO (10:43)
== END 2022-04-29 10:45 | disposition left against medical advice (07) | DRG 750 ==
LOC: EMS 16:03 → B3A 02-18 09:36
PROVIDERS: ADMIT Psychiatry & Neurology Child & Adolescent Psychiatry; ATTEND Psychiatry & Neurology Child & Adolescent Psychiatry
DX: F20.0 Paranoid schizophrenia (principal); D69.6 Thrombocytopenia, unspecified; L03.116 Cellulitis of left lower limb; E11.9 Type 2 diabetes mellitus without complications; Z59.00 Homelessness unspecified; R45.851 Suicidal ideations; D64.9 Anemia, unspecified; F10.20 Alcohol dependence, uncomplicated; F12.10 Cannabis abuse, uncomplicated; F17.210 Nicotine dependence, cigarettes, uncomplicated; F15.10 Other stimulant abuse, uncomplicated; Z20.822 Contact with and (suspected) exposure to COVID-19; L24.9 Irritant contact dermatitis, unspecified cause; R25.1 Tremor, unspecified; Z53.29 Procedure and treatment not carried out because of patient's decision for other reasons; F41.9 Anxiety disorder, unspecified; I10 Essential (primary) hypertension; Z78.1 Physical restraint status; Z91.14 Patient's other noncompliance with medication regimen; Z79.899 Other long term (current) drug therapy; Z90.49 Acquired absence of other specified parts of digestive tract; Z89.431 Acquired absence of right foot; Z71.41 Alcohol abuse counseling and surveillance of alcoholic; Z71.51 Drug abuse counseling and surveillance of drug abuser
CPT/HCPCS: 70450; 80053; 82962; 85025; 87081; 99291; G0480; J0696; J1200; J1630; J2060; J3230; J3490